=== PATIENT | female | born 1975 | race Caucasian/White ===

== ENCOUNTER 2017-08-11 15:57 | Emergency (ER) | payer OTHER ==
[~2017-08-11] VITALS: Ht 157.5 cm; Wt 72.6 kg
[~2017-08-11 15:57] MED LIST: AUGMENTIN 875-1 EACH PO; CIPROFLOXACIN750 MG PO; IBUPROFEN600 MG PO; NORCO 5-325 TA1 EACH PO; OMEPRAZOLE20 MG PO; ZOFRAN ODT4 MG PO
== END 2017-08-11 16:10 | disposition home or self-care (01) ==
LOC: ED 15:57
DX: S61.411A Laceration without foreign body of right hand, initial encounter (principal); W45.8XXA Other foreign body or object entering through skin, initial encounter